=== PATIENT | female | born 1930 | race Caucasian/White ===

== ENCOUNTER → 2021-04-16 | Outpatient (CLI) | payer MEDICARE ==
--- NOTE | 2021-04-16 11:43 | CARD ---
MR#: [id number] Date of Study: 04/16/2021 Ordering Physician: HONORIO CLARK, Referring Physician: HONORIO CLARK, Tech: Urszula Villegas, [facility] APPROVED REPORT EXAM: Two-dimensional and M-mode echocardiogram with Doppler and color Doppler. Other Information Quality : AverageHR: 76bpm INDICATION Atrial Fibrillation 2D DIMENSIONS Left Atrium(2D)3.0 (1.6-4.0cm)IVSd1.0 (0.7-1.1cm) Aortic Root(2D)2.8 (2.0-3.7cm)LVDd4.3 (3.9-5.9cm) LVOT Diameter2.0 (1.8-2.4cm)PWd0.9 (0.7-1.1cm) LVDs2.7 (2.5-4.0cm)FS (%) 37.4 % SV55.4 mlLVEF(%)67.8 (>50%) Aortic Valve AoV Peak Alex.150.3cm/sAoV VTI30.7cm AO Peak GR.6.9mmHgLVOT Peak Alex.102.4cm/s LVOT VTI 24.24cmAO Mean GR.5mmHg JO (VMAX)2.31mz4NEV (VTI)2.58cm2 AI P 1/2 [id number] Mitral Valve MV E Fxtewoab78.3cm/sMV E Peak Gr.4mmHg MV DECEL [id number] A Xlqypmey87.8cm/s MV E Mean Gr.2mmHgE/A Ratio1.1 Pulmonary Valve PV Peak Rwupegrg95.7cm/sPV Peak Grad.3mmHg Tricuspid Valve TR P. [id number]/sRAP [id number] TR Peak Gr.65qoEzGPBM09kdGb LEFT VENTRICLE The left ventricle is normal size. There is normal left ventricular wall thickness. The left ventricu lar systolic function is normal. The Ejection Fraction is 55%. There is normal LV segmental wall berto on. Transmitral Doppler flow pattern is Grade II-pseudonormal filling dynamics. RIGHT VENTRICLE The right ventricle is normal size. There is normal right ventricular wall thickness. The right ventr icular systolic function is normal. ATRIA The left atrium size is normal. The right atrium size is normal. The interatrial septum is intact wit h no evidence for an atrial septal defect or patent foramen ovale as noted on 2-D or Doppler imaging. AORTIC VALVE The aortic valve is thickened but opens well. Doppler and Color Flow revealed mild aortic regurgitati on. There is no significant aortic valvular stenosis. Calculated aortic valve area is 2.7 cm2 with ma ximum pressure gradient of 9 mmHg and mean pressure gradient of 6 mmHg. MITRAL VALVE The mitral valve is normal in structure and function. There is no evidence of mitral valve prolapse. There is no mitral valve stenosis. Doppler and Color-flow revealed trace mitral regurgitation. TRICUSPID VALVE The tricuspid valve is normal in structure and function. Doppler and Color Flow revealed trace tricus pid regurgitation with an estimated PAP of 30 mmHg. There is no tricuspid valve stenosis. PULMONIC VALVE The pulmonic valve is not well visualized. Doppler and Color Flow revealed trace pulmonic valvular re gurgitation. GREAT VESSELS The aortic root is normal in size. The ascending aorta is normal in size. The IVC is normal in size a nd collapses >50% with inspiration. PERICARDIAL EFFUSION There is no evidence of significant pericardial effusion. Critical Notification Critical Value: No <Conclusion> The left ventricular systolic function is normal. The Ejection Fraction is 55%. There is normal LV segmental wall motion. Mild aortic regurgitation. Trace mitral regurgitation. Trace tricuspid regurgitation with an estimated PAP of 30 mmHg. There is no evidence of significant pericardial effusion. Signed by : Fei Segovia, Electronically Approved : 04/16/2021 11:42:42
== END ==
LOC: ECHO 09:04
PROVIDERS: ATTEND Internal Medicine Cardiovascular Disease
DX: I35.1 Nonrheumatic aortic (valve) insufficiency (principal); I48.20 Chronic atrial fibrillation, unspecified
CPT/HCPCS: 93306

== ENCOUNTER → 2021-04-24 | Outpatient (CLI) | payer MEDICARE ==
--- NOTE | 2021-04-25 14:58 | RAD ---
Study: XR LUMBAR SPINE 2-3V Indication: Fall. 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 Unchanged chronic superior endplate compression deformity at L2 with resultant mild localized kyphosi s across L1-L2. Newly seen mild superior endplate height loss at L4.. Redemonstration of disc space n arrowing at L1-L2 and sclerosis at the anterior/inferior aspect of L1. No disc space collapse from L3 -L4 through L5-S1. 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 Osteopenia. Pelvic findings discussed in a separate report. Vascular calcifications. Rounded focus of mineralization projecting at the T9-T10 level likely corresponds to a granuloma. Impression: 1. Mild superior endplate height loss at L4 the acuity of which is uncertain but was not seen on the 2018 comparison. Correlate for pinpoint tenderness. Unchanged/chronic compression deformity at L2. 2. Multilevel degenerative changes on a background of osteopenia. Electronically signed by: SENTHIL BAZZI MD (04/25/2021 2:56 PM) [facility]
--- NOTE | 2021-04-25 15:05 | RAD ---
Study: XR PELVIS 1-2V Indication: Fall. Comparison: None recently. Findings: Bilateral obturator ring deformities exhibiting features of chronicity. Noting osteopenia no definiti ve acute fracture seen throughout the pelvis. Sacral ala sclerosis on the left more so than right june ears similar to the prior. Note is made that radiographs are insensitive to the detection of subtle i nsufficiency fractures. Sclerosis at the iliac side of the right SI joint was present on the 2018 lum bar spine. 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 Degenerative changes at th e hips but without joint space collapse. Impression: 1. Chronic bilateral obturator ring deformities. No definitive acute fracture throughout the pelvis t aking into consideration osteopenia. 2. 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 Electronically signed by: SENTHIL BAZZI MD (04/25/2021 3:03 PM) [facility]
== END ==
LOC: RAD 15:53
PROVIDERS: ATTEND Nurse Practitioner
DX: M47.816 Spondylosis without myelopathy or radiculopathy, lumbar region (principal); M43.8X6 Other specified deforming dorsopathies, lumbar region; M85.88 Other specified disorders of bone density and structure, other site
CPT/HCPCS: 72100; 72170